=== PATIENT | female | born 1995 | race Two or more races ===

== ENCOUNTER 2017-05-14 09:30 | Emergency (ER) | payer OTHER ==
[2017-05-14 09:36] VITALS: BP 129/80; PULSE 94; RESP 17; TEMP 98.6; O2SAT 98
--- NOTE | 2017-05-14 09:58 | EDPHY ---
General Narrative: CHIEF COMPLAINT: Rash HISTORY OF PRESENT ILLNESS: Patient complains of several days duration of rash to bilateral axilla. Gradual onset. Constant duration. This been present for nearly a week but she felt as though would get better. She has no fever or chills. No neck pain or stiffness. No headache. She does have cold like symptoms at this time. No known history of diabetes. No systemic rash. No abdominal pain. No urinary complaints. No new soaps, lotions or products. She does shave her armpits. She has attempted lotion with no improvement. No other associated complaints or modifying factors. REVIEW OF SYSTEMS: Ten systems reviewed and are negative unless otherwise noted in the HPI PCP: Dr. Ceballos SPECIALISTS: None PAST MEDICAL HISTORY: None PAST SURGICAL HISTORY: None SOCIAL HISTORY: Nonsmoker. Works full-time. FAMILY HISTORY: Noncontributory EXAMINATION General Appearance: Alert, no distress Head: normocephalic, atraumatic Eyes: Pupils equal and round, no conjunctival pallor or injection ENT, Mouth: Mucous membranes moist. Airway patent Neck: Normal inspection, supple, non-tender. Painless range of motion all planes. No meningeal signs. Respiratory: Lungs are clear to auscultation. No wheezing, rhonchi or crackles Cardiovascular: Regular rate and rhythm. No murmur Gastrointestinal: Abdomen is soft and nontender. No CVA tenderness. Back: non-tender, no bony abnormalities Neurological: A&O, nonfocal, normal gait Skin: Warm and dry. Grossly intact. Blanchable plaque type rash and bilateral axilla with some mild warmth to it. Minimal induration. Some acanthosis. No fluctuance. No petechiae. No purpura. Extremities: Nontender, no pedal edema Psychiatric: Mood and affect normal DIFFERENTIAL DIAGNOSES: Including but not limited to contact dermatitis, eczema, cellulitis, irritant dermatitis MDM: 9:50 a.m. Bilateral rash to the axilla that appears to be contact dermatitis with some early cellulitic changes. No abscess. No systemic rash. Vital signs within normal limits. No meningeal signs. No petechiae or purpura. Will treat topically with steroid an oral Keflex. I have ordered a fingerstick glucose test. 10:05 a.m. Fingerstick blood sugar was 84 mg/dL. Continue with treatment for the possibility of contact dermatitis. I requested that she not shave, apply any deodorant, apply any lotions or creams other than the topical triamcinolone. She is to contact her established primary care physician Dr. Ceballos on Tuesday morning for follow-up. We discussed ED precautions. She is in no acute distress. She is comfortable this plan and discharged in stable condition. - History Smoking Status: Never smoked - Objective Vital Signs: Initial Vital Signs Temperature (C) 98.6 F 05/14/17 09:33 Heart Rate 94 05/14/17 09:33 Respiratory Rate 17 05/14/17 09:33 Blood Pressure 129/80 H 05/14/17 09:33 O2 Sat (%) 98 05/14/17 09:33 O2 Delivery Mode Room Air Allergies/Adverse Reactions: No Known Allergies Allergy (Unverified 04/21/15 16:33) Home Medications: Medication Instructions Recorded Cephalexin [Keflex (*)] 500 mg PO QID #40 cap 05/14/17 Triamcinolone 0.1% [Triamcinolone 1 sury TP TID #1 tube 05/14/17 0.1% Cream] Laboratory Results: 05/14/17 09:48 POC Glucose 84 mg/dL mg/dL (70-100) Point of Care Test Results: 05/14/17 09:48 POC Glucose 84 Departure - Departure Disposition: Home, Routine, Self-Care Clinical Impression: Contact dermatitis and eczema, Cellulitis of left axilla, Cellulitis of axilla , right Condition: Good Instructions: Contact Dermatitis (ED), Cellulitis (ED) Additional Instructions: 1. Topical triamcinolone medication as prescribed to completion 2. Oral medication as prescribed to completion 3. Contact Dr. Ceballos on Tuesday for follow-up early next week 4. ED precautions as discussed 5. Avoid any topical creams, lotions, soaps or shaving of the axilla Referrals: Rosa Ceballos MD [Primary Care Provider] - As per Instructions Prescriptions: Cephalexin [Keflex (*)] 500 mg PO QID #40 cap Triamcinolone 0.1% [Triamcinolone 0.1% Cream] 1 sury TP TID #1 tube
== END 2017-05-14 10:21 | disposition home or self-care (01) ==
DX: L25.9 Unspecified contact dermatitis, unspecified cause (principal); L03.112 Cellulitis of left axilla; L03.111 Cellulitis of right axilla

== ENCOUNTER 2017-12-16 00:40 | Emergency (ER) | payer OTHER ==
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
[2017-12-16] MEDS ORDERED: PROPARACAINE/FLUORESCEIN SOD 5 ML OPHT.BTL OP ONE (00:53)
[2017-12-16] MEDS ORDERED: IBUPROFEN 800 MG TAB PO ONE (01:00)
[2017-12-16] MEDS ORDERED: CEPHALEXIN 500MG PREPACK#4 BTL TAKEHOME ONE (01:00)
[2017-12-16] MEDS ORDERED: CEPHALEXIN 500 MG CAP PO ONE (01:00)
[2017-12-16 01:45] VITALS: BP 110/76
[2017-12-16] MEDS ORDERED: OFLOXACIN 0.3% 5ML OPHT DROPS LEFTEYE SCH (02:00)
== END 2017-12-16 01:43 | disposition home or self-care (01) ==
DX: H10.9 Unspecified conjunctivitis (principal)

== ENCOUNTER 2018-03-28 20:24 | Emergency (ER) | payer OTHER ==
--- NOTE | 2018-03-28 20:38 | EDPHY ---
H & P Stated Complaint: CP X2 WKS, HAS BEEN SEEN X2, CP WORSE Time Seen by Provider: 03/28/18 20:37 HPI/ROS: CHIEF COMPLAINT: Chest pain HISTORY OF PRESENT ILLNESS: The patient presents to the ED for evaluation of a 2 week history of chest pain. Patient reports left-sided chest discomfort. It is slightly worsened with palpation and inspiration. The patient denies any asymmetric calf pain or swelling. She denies prior history of PE or DV T. Patient did have a mild cough and upper respiratory infection earlier in the week. The patient is not attempted to take any [id number] medications such as Tylenol or ibuprofen for management of her symptoms. The patient reports her symptoms as being moderate in nature. REVIEW OF SYSTEMS: A comprehensive 10 point review of systems is otherwise negative aside from elements mentioned in the history of present illness. Source: Patient - Personal History LMP (Females 10-55): Extended Cycle BCP/Inj Current Tetanus/Diphtheria Vaccine: Yes - Medical/Surgical History Hx Asthma: No Hx Chronic Respiratory Disease: No Hx Diabetes: No Hx Cardiac Disease: No Hx Renal Disease: No Hx Cirrhosis: No Hx Alcoholism: No Hx HIV/AIDS: No Hx Splenectomy or Spleen Trauma: No Other PMH: 03/2018: denies - Family History Significant Family History: No pertinent family hx - Social History Smoking Status: Never smoked - Physical Exam Exam: General Appearance: Alert, no distress Eyes: Pupils equal and round no pallor or injection ENT, Mouth: Mucous membranes moist Respiratory: Tenderness to palpation left costochondral area, lungs clear to auscultation Cardiovascular: Regular rate and rhythm Gastrointestinal: Abdomen is soft and nontender, no masses, bowel sounds normal Neurological: 5/5 strength all 4 extremities Skin: Warm and dry, no rashes Musculoskeletal: Neck is supple nontender Extremities: symmetrical, full range of motion, no clinical evidence of DVT. Psychiatric: Patient is oriented X 3, there is no agitation Constitutional: Initial Vital Signs Temperature (C) 37.2 C 03/28/18 20:33 Heart Rate 85 03/28/18 20:33 Respiratory Rate 18 03/28/18 20:33 Blood Pressure 131/72 H 03/28/18 20:33 O2 Sat (%) 100 03/28/18 20:33 O2 Delivery Mode Room Air Allergies/Adverse Reactions: No Known Allergies Allergy (Unverified 03/28/18 20:33) Home Medications: Medication Instructions Recorded NK [No Known Home Meds] 03/28/18 Medical Decision Making - Diagnostics EKG Interpretation: EKG: Complete interpretation has been separately recorded in the [facility] archive. Summary impression: Sinus rhythm, rate 89, no ST segment elevation or depression noted Imaging Results: Chest x-ray PA lateral: Images reviewed by myself, negative for pneumothorax, cardiomegaly or infiltrate. ED Course/Re-evaluation: The patient presents the ED with several weeks of left-sided chest pain. There is a reproducible component which is suggestive of costochondritis. The patient also has a small inspiratory component. The patient's D-dimer is negative which I feel adequately excludes pulmonary embolism. Chest x-ray demonstrates no evidence of a pneumothorax or other acute abnormality. Her EKG demonstrates no evidence of ischemia. The patient will be advised to take ibuprofen for presumed costochondritis. Differential Diagnosis: Differential diagnosis considered includes costochondritis, pulmonary embolism, pneumothorax, pericarditis, myocarditis - Data Points Laboratory Results: Laboratory Results 03/28/18 21:13 03/28/18 21:13 03/28/18 03/28/18 03/28/18 21:13 21:13 21:13 WBC RBC Hgb Hct MCV MCH MCHC RDW Plt Count MPV Neut % (Auto) Lymph % (Auto) Irion % (Auto) Eos % (Auto) Baso % (Auto) Nucleat RBC Rel Count Absolute Neuts (auto) Absolute Lymphs (auto) Absolute Monos (auto) Absolute Eos (auto) Absolute Basos (auto) Absolute Nucleated RBC Immature Gran % Immature Gran # D-Dimer < 0.27 ug/mLFEU ug/mLFEU (0.00-0.50) Sodium 140 mEq/L mEq/L (135-145) Potassium 3.8 mEq/L mEq/L (3.3-5.0) Chloride 104 mEq/L mEq/L (97-110) Carbon Dioxide 23 mEq/l mEq/l (22-31) Anion Gap 13 mEq/L mEq/L (8-16) BUN 6 mg/dL L mg/dL (7-23) Creatinine 0.6 mg/dL mg/dL (0.6-1.0) Estimated GFR > 60 Glucose 101 mg/dL H mg/dL (70-100) Calcium 9.6 mg/dL mg/dL (8.5-10.4) Troponin I < 0.012 ng/mL ng/mL (0.000-0.034) Beta HCG, Qual NEGATIVE 03/28/18 21:13 WBC 7.86 10^3/uL 10^3/uL (3.80-9.50) RBC 4.36 10^6/uL 10^6/uL (4.18-5.33) Hgb 12.5 g/dL L g/dL (12.6-16.3) Hct 35.7 % L % (38.0-47.0) MCV 81.9 fL fL (81.5-99.8) MCH 28.7 pg pg (27.9-34.1) MCHC 35.0 g/dL g/dL (32.4-36.7) RDW 12.4 % % (11.5-15.2) Plt Count 223 10^3/uL 10^3/uL (150-400) MPV 9.7 fL fL (8.7-11.7) Neut % (Auto) 70.6 % % (39.3-74.2) Lymph % (Auto) 25.3 % % (15.0-45.0) Irion % (Auto) 3.4 % L % (4.5-13.0) Eos % (Auto) 0.3 % L % (0.6-7.6) Baso % (Auto) 0.1 % L % (0.3-1.7) Nucleat RBC Rel Count 0.0 % % (0.0-0.2) Absolute Neuts (auto) 5.55 10^3/uL 10^3/uL (1.70-6.50) Absolute Lymphs (auto) 1.99 10^3/uL 10^3/uL (1.00-3.00) Absolute Monos (auto) 0.27 10^3/uL L 10^3/uL (0.30-0.80) Absolute Eos (auto) 0.02 10^3/uL L 10^3/uL (0.03-0.40) Absolute Basos (auto) 0.01 10^3/uL L 10^3/uL (0.02-0.10) Absolute Nucleated RBC 0.00 10^3/uL 10^3/uL (0-0.01) Immature Gran % 0.3 % % (0.0-1.1) Immature Gran # 0.02 10^3/uL 10^3/uL (0.00-0.10) D-Dimer Sodium Potassium Chloride Carbon Dioxide Anion Gap BUN Creatinine Estimated GFR Glucose Calcium Troponin I Beta HCG, Qual Departure - Departure Disposition: Home, Routine, Self-Care Clinical Impression: Costochondritis Condition: Good Instructions: Costochondritis (ED) Additional Instructions: 1. The testing done in the emergency department today demonstrates no significant cardiac or pulmonary condition. 2. I believe your having inflammatory condition of your rib cartilage. I do recommend beginning Motrin 600 mg 3 times a day. Referrals: Rosa Ceballos MD [Primary Care Provider] - As per Instructions
--- NOTE | 2018-03-28 20:58 | CPEKG ---
Test Reason : OPEN Blood Pressure : / mmHG Vent. Rate : 089 BPM Atrial Rate : 089 BPM P-R Int : 140 ms QRS Dur : 097 ms QT Int : 369 ms P-R-T Axes : 020 083 042 degrees QTc Int : 449 ms Sinus rhythm Confirmed by John Dupree ([id number]) on 03/28/2018 8:57:39 PM Referred By: Confirmed By:John Dupree
[2018-03-28 21:21] LABS: PLATELET COUNT 223 10^3/uL (150-400)
[2018-03-28 22:08] VITALS: BP 136/91
== END 2018-03-28 22:11 | disposition home or self-care (01) ==
DX: R07.9 Chest pain, unspecified (principal); J98.09 Other diseases of bronchus, not elsewhere classified

== ENCOUNTER 2018-05-02 17:49 | Emergency (ER) | payer OTHER ==
--- NOTE | 2018-05-02 18:28 | EDPHY ---
H & P Stated Complaint: abd pain x months. Time Seen by Provider: 05/02/18 18:05 HPI/ROS: Clinical Impression: Cholelithiasis, abdominal pain Assessment/Plan: A 22-year-old female presents to the emergency department with months of abdominal pain, worse in the last 2 weeks. Patient is afebrile, stable vital signs on arrival, in no acute distress, nontoxic, nonseptic, and declining antiemetic and analgesic therapy. Abdomen with right upper quadrant and epigastric tenderness although no focal peritoneal findings, distention or rigidity. Labs were reassuring with no transaminitis, leukocytosis, electrolyte imbalance, metabolic disturbance, pancreatitis, or acute renal insufficiency. Ultrasound confirms significant cholelithiasis with no evidence of acute cholecystitis or choledocholithiasis. Patient also has fatty liver. I discussed lab and ultrasound findings with her. Encouraged outpatient surgical follow-up and referrals were given. Patient declined pain medication. Dietary adjustments recommended. Warning signs return to ED sooner alignment person and discharge papers. Case discussed with Dr. Mahmood. Differential Dx: Differential diagnosis includes but not limited to acute cholecystitis, cholelithiasis, pancreatitis, gastritis, SBO, nephrolithiasis ED Course: 1921: Patient reassessed. Laying comfortably in bed, NAD. Declining pain meds. No vomiting. Lab results reviewed, no significant findings. patient requesting US of gallbladder which was ordered. Low suspicion for acute surgical process. 2047: Dr. Dove with radiology read US. Many gallstones. No US e/o acute cholecystitis but + Nevarez sign on exam. Also with fatty liver. Chief Complaint: Abdominal pain HPI: 22-year-old female presents to the emergency department with complaints of abdominal pain times months. Patient reports worsening abdominal pain in the last week. She has apparently been seen by [facility] seen at 10 times for abdominal pain. She reports having a normal EKG. She had a CT scan on the 25 of April that was read as normal with no acute findings, I personally reviewed this radiology report on her phone. She was reportedly also had normal labs. She was told she had"an infection in her urine"but that she was told to drink plenty of water and was not given antibiotics. She is on Nexplanon control and reports she has not had a menstrual cycle for many months. She denies risk of . No abnormal complaints but she has not had a formal pelvic exam. She reports having a documented fever of 102 yesterday. Eating makes her symptoms worse. This is associated with nausea and diarrhea. No report of bloody stools. No vomiting. She has not taken anything for her symptoms. She is declining nausea and pain medications in the ED. PMH: Chronic abdominal pain Pertinent Past Surgical History: None reported Family History: None reported Social History: Nonsmoker, denies alcohol ROS: All other systems negative Constitutional: No fever, no chills, +appetite change. Cardiovascular: No chest pain, no palpitations. Respiratory: No cough, no shortness of breath. Gastrointestinal: +abdominal pain, no vomiting, +diarrhea. Genitourinary: No hematuria, dysuria, flank pain, pelvic pain, no abnormal vaginal discharge Musculoskeletal: No back pain, joint swelling, joint pain, myalgias. Skin: No rashes, color change. Neurological: No headache, dizziness, weakness. Physical Exam: General Appearance: Alert, oriented, appropriate, cooperative, NAD, well hydrated, non-toxic appearing, VSS, no hypoxia, lying comfortably in the bed, declining analgesics. Respiratory: There are no retractions, lungs are clear to auscultation. Cardiac: Regular rate and rhythm, no murmurs or gallops. Gastrointestinal: Abdomen is soft, generalized tenderness, right upper quadrant and epigastric tenderness, negative Nevarez sign, bowel sounds normal, no masses/ hernia, no rigidity, guarding or focal peritoneal findings. Neurological: Alert and oriented x 3, CN 2-12 grossly intact, DTR's intact, normal sensation and strength Skin: Warm, dry, no rashes, no nodules on palpation. Psychiatric: Patient is oriented X 3, there is no agitation. MDM: Patient was seen independently by established practice protocols. Secondary supervising physician at time of evaluation was Dr. Mahmood . Diagnosis: Acute on chronic abdominal pain. New, requires workup Summary: See Assessment and Plan for summary of ED visit Clinical lab tests: ordered / reviewed. Independent visualization of images, tracing, or specimens: Personally reviewed the patient's records of recent CT scan abdomen pelvis with contrast read by Radiology with no acute findings. Review / Summarize previous medical records: Yes, see above HPI for CT results Discussed patient with another provider: Dr. Mahmood Risk of comlications, morbidity, mortality: Presenting problem moderate Diagnostic procedures moderate Management Options moderate Patient Progress: Stable. - Medical/Surgical History Hx Asthma: No Hx Chronic Respiratory Disease: No Hx Diabetes: No Hx Cardiac Disease: No Hx Renal Disease: No Hx Cirrhosis: No Hx Alcoholism: No Hx HIV/AIDS: No Hx Splenectomy or Spleen Trauma: No Other PMH: 03/2018: denies - Social History Smoking Status: Never smoked Constitutional: Initial Vital Signs Temperature (C) 37.0 C 05/02/18 18:03 Heart Rate 93 05/02/18 18:03 Respiratory Rate 18 05/02/18 18:03 Blood Pressure 136/79 H 05/02/18 18:03 O2 Sat (%) 99 05/02/18 18:03 O2 Delivery Mode Room Air Allergies/Adverse Reactions: No Known Allergies Allergy (Unverified 05/02/18 18:03) Home Medications: Medication Instructions Recorded NK [No Known Home Meds] 03/28/18 Medical Decision Making - Diagnostics Imaging Results: Imaging Impressions Abdomen Ultrasound 05/02/18 19:19 Impression: 1. Cholelithiasis with no definite secondary findings to confirm acute cholecystitis. 2. Suspect hepatic steatosis. 3. See above report for additional findings. Results called and discussed with Kwesi WILKINS on 05/02/2018 at 20:38. - Data Points Laboratory Results: Laboratory Results 05/02/18 18:10 05/02/18 18:10 05/02/18 05/02/18 18:10 18:10 WBC 6.34 10^3/uL 10^3/uL (3.80-9.50) RBC 4.58 10^6/uL 10^6/uL (4.18-5.33) Hgb 13.2 g/dL g/dL (12.6-16.3) Hct 38.1 % % (38.0-47.0) MCV 83.2 fL fL (81.5-99.8) MCH 28.8 pg pg (27.9-34.1) MCHC 34.6 g/dL g/dL (32.4-36.7) RDW 12.8 % % (11.5-15.2) Plt Count 269 10^3/uL 10^3/uL (150-400) MPV 10.2 fL fL (8.7-11.7) Neut % (Auto) 61.9 % % (39.3-74.2) Lymph % (Auto) 29.0 % % (15.0-45.0) [place] % (Auto) 7.4 % % (4.5-13.0) Eos % (Auto) 0.9 % % (0.6-7.6) Baso % (Auto) 0.5 % % (0.3-1.7) Nucleat RBC Rel Count 0.0 % % (0.0-0.2) Absolute Neuts (auto) 3.92 10^3/uL 10^3/uL (1.70-6.50) Absolute Lymphs (auto) 1.84 10^3/uL 10^3/uL (1.00-3.00) Absolute Monos (auto) 0.47 10^3/uL 10^3/uL (0.30-0.80) Absolute Eos (auto) 0.06 10^3/uL 10^3/uL (0.03-0.40) Absolute Basos (auto) 0.03 10^3/uL 10^3/uL (0.02-0.10) Absolute Nucleated RBC 0.00 10^3/uL 10^3/uL (0-0.01) Immature Gran % 0.3 % % (0.0-1.1) Immature Gran # 0.02 10^3/uL 10^3/uL (0.00-0.10) Sodium 140 mEq/L mEq/L (135-145) Potassium 3.9 mEq/L mEq/L (3.3-5.0) Chloride 103 mEq/L mEq/L (97-110) Carbon Dioxide 26 mEq/l mEq/l (22-31) Anion Gap 11 mEq/L mEq/L (6-14) BUN 8 mg/dL mg/dL (7-23) Creatinine 0.6 mg/dL mg/dL (0.6-1.0) Estimated GFR > 60 Glucose 92 mg/dL mg/dL (70-100) Calcium 9.8 mg/dL mg/dL (8.5-10.4) Total Bilirubin 0.9 mg/dL mg/dL (0.1-1.4) Conjugated Bilirubin 0.2 mg/dL mg/dL (0.0-0.5) Unconjugated Bilirubin 0.7 mg/dL mg/dL (0.0-1.1) AST 18 IU/L IU/L (14-46) ALT 26 IU/L IU/L (9-52) Alkaline Phosphatase 68 IU/L IU/L (38-126) Total Protein 8.2 g/dL g/dL (6.3-8.2) Albumin 5.0 g/dL g/dL (3.5-5.0) Lipase 183 IU/L IU/L (23-300) Point of Care Test Results: Urine Collection Date 05/02/18 Collection Time 18:47 HCG Results Negative Urine Dip Collection Date 05/02/18 Collection Time 18:46 Specific [place] (1.002-1.030) 1.005 PH (5.0-7.5) 7.5 Leukocytes (Negative) Negative Nitrites (Negative) Negative Protein (Negative) Negative Glucose (Negative) Negative Ketones (Negative) Negative Urobilnogen (0.2-1.0 EU) 0.2 Bilirubin (Negative) Negative Blood (Negative) Negative Departure - Departure Disposition: Home, Routine, Self-Care Clinical Impression: Cholelithiasis Qualifiers: Cholelithiasis location: gallbladder Cholecystitis presence: without cholecystitis Biliary obstruction: without biliary obstruction Qualified Code(s) : K80.20 - Calculus of gallbladder without cholecystitis without obstruction Condition: Good Instructions: Gallstones (ED) Additional Instructions: Your ultrasound tonight shows that you have many gallstones and your gallbladder. You do not have any clinical signs to suggest an acutely infected gallbladder. Your gallbladder does not need to be removed emergently tonight. However, we recommend that you see a general surgeon given that you're having increased pain. A referral was given. Please use Tylenol or ibuprofen for pain control. Please avoid fatty foods, fried foods and cakes and cookies. Please stick to a healthy diet. Return to the emergency department sooner for severe pain, fever greater than 100.4, vomiting, abdominal distention, or any other concerns. Referrals: Rosa Ceballos MD [Primary Care Provider] - As per Instructions Horacio Bear MD [Medical Doctor] - 1 day without fail
[2018-05-02 18:30] LABS: PLATELET COUNT 269 10^3/uL (150-400)
[2018-05-02 21:13] VITALS: BP 138/89
== END 2018-05-02 21:14 | disposition home or self-care (01) ==
DX: K80.20 Calculus of gallbladder without cholecystitis without obstruction (principal)

== ENCOUNTER 2018-05-29 11:35 | Emergency (ER) | payer OTHER ==
--- NOTE | 2018-05-29 11:50 | EDPHY ---
H & P Stated Complaint: chest pain Time Seen by Provider: 05/29/18 11:49 HPI/ROS: CHIEF COMPLAINT: Chest pain, palpitations HISTORY OF PRESENT ILLNESS: The patient presents to the ED with complaints of chest pain palpitations that began at work. The patient denies any inciting event. She denies feeling particularly stressed out or anxious. The patient was seen in the emergency department 2 months ago with chest pain and had a negative workup at that point time. The patient does endorse some symptoms of left calf discomfort. She also complains of a mild component of pleuritic chest pain. The patient denies fever, cough or congestion. The patient takes no regular medications. Her symptoms are mild to moderate in nature. REVIEW OF SYSTEMS: A comprehensive 10 point review of systems is otherwise negative aside from elements mentioned in the history of present illness. Source: Patient Exam Limitations: No limitations - Personal History LMP (Females 10-55): Irregular Current Tetanus/Diphtheria Vaccine: Yes Current Tetanus Diphtheria and Acellular Pertussis (TDAP): Yes - Medical/Surgical History Hx Asthma: No Hx Chronic Respiratory Disease: No Hx Diabetes: No Hx Cardiac Disease: No Hx Renal Disease: No Hx Cirrhosis: No Hx Alcoholism: No Hx HIV/AIDS: No Hx Splenectomy or Spleen Trauma: No Other PMH: 03/2018: denies - Social History Smoking Status: Never smoked - Physical Exam Exam: General Appearance: Tearful, anxious Eyes: Pupils equal and round no pallor or injection ENT, Mouth: Mucous membranes moist Respiratory: There are no retractions, lungs are clear to auscultation Cardiovascular: Regular rate and rhythm Gastrointestinal: Abdomen is soft and nontender, no masses, bowel sounds normal Neurological: A&O, normal motor function, normal sensory exam, normal cranial nerves Skin: Warm and dry, no rashes Musculoskeletal: Neck is supple nontender Extremities: symmetrical, full range of motion Psychiatric: Patient is oriented X 3, there is no agitation Constitutional: Initial Vital Signs Temperature (C) 37.1 C 05/29/18 11:41 Heart Rate 102 H 05/29/18 11:41 Respiratory Rate 18 05/29/18 11:41 Blood Pressure 137/79 H 05/29/18 11:41 O2 Sat (%) 99 05/29/18 11:41 O2 Delivery Mode Room Air Allergies/Adverse Reactions: No Known Allergies Allergy (Unverified 05/02/18 18:03) Home Medications: Medication Instructions Recorded NK [No Known Home Meds] 03/28/18 Medical Decision Making - Diagnostics EKG Interpretation: EKG: Complete interpretation has been separately recorded in the [email or web address] archive. Summary impression: Sinus rhythm, rate 97, LVH ED Course/Re-evaluation: The patient presents to the ED with complaints of chest pain and palpitations began earlier today. The patient seemed quite anxious upon arrival that she denies any clear precipitating event which would admit her anxious today. The patient has been evaluated for chest pain in the emergency department in the past. She has no risk factors for acute coronary syndrome. Patient had a negative D-dimer which I feel adequately excludes pulmonary embolism in this low risk by Wells criteria patient. The patient was given 1 mg of IV Ativan here. The patient had unremarkable chest x-ray 2 months ago. She has no symptoms suggestive of pulmonary embolism or pneumothorax. Additionally the patient has no evidence of anemia or a significant metabolic derangement. I re-evaluated the patient at 1:00 p.m.. At this point time I do feel that she can continue to work with her primary care provider for follow-up. I doubt acute coronary syndrome at think that her symptoms are most likely mediated by anxiety. Differential Diagnosis: Differential diagnosis considered includes anxiety, arrhythmia, dehydration, palpitations, arrhythmia, pulmonary embolism - Data Points Laboratory Results: Laboratory Results 05/29/18 11:39 05/29/18 11:39 05/29/18 05/29/18 05/29/18 11:42 11:39 11:39 WBC RBC Hgb Hct MCV MCH MCHC RDW Plt Count MPV Neut % (Auto) Lymph % (Auto) [place] % (Auto) Eos % (Auto) Baso % (Auto) Nucleat RBC Rel Count Absolute Neuts (auto) Absolute Lymphs (auto) Absolute Monos (auto) Absolute Eos (auto) Absolute Basos (auto) Absolute Nucleated RBC Immature Gran % Immature Gran # D-Dimer < 0.27 ug/mLFEU ug/mLFEU (0.00-0.50) Sodium 141 mEq/L mEq/L (135-145) Potassium 4.0 mEq/L mEq/L (3.3-5.0) Chloride 103 mEq/L mEq/L (97-110) Carbon Dioxide 20 mEq/l L mEq/l (22-31) Anion Gap 18 mEq/L H mEq/L (6-14) BUN 11 mg/dL mg/dL (7-23) Creatinine 0.6 mg/dL mg/dL (0.6-1.0) Estimated GFR > 60 Glucose 100 mg/dL mg/dL (70-100) Calcium 10.0 mg/dL mg/dL (8.5-10.4) POC Troponin I 0.00 ng/mL ng/mL (0.00-0.08) 05/29/18 11:39 WBC 6.77 10^3/uL 10^3/uL (3.80-9.50) RBC 4.98 10^6/uL 10^6/uL (4.18-5.33) Hgb 14.6 g/dL g/dL (12.6-16.3) Hct 42.1 % % (38.0-47.0) MCV 84.5 fL fL (81.5-99.8) MCH 29.3 pg pg (27.9-34.1) MCHC 34.7 g/dL g/dL (32.4-36.7) RDW 12.7 % % (11.5-15.2) Plt Count 319 10^3/uL 10^3/uL (150-400) MPV 10.2 fL fL (8.7-11.7) Neut % (Auto) 52.1 % % (39.3-74.2) Lymph % (Auto) 39.4 % % (15.0-45.0) [place] % (Auto) 5.9 % % (4.5-13.0) Eos % (Auto) 1.6 % % (0.6-7.6) Baso % (Auto) 0.9 % % (0.3-1.7) Nucleat RBC Rel Count 0.0 % % (0.0-0.2) Absolute Neuts (auto) 3.52 10^3/uL 10^3/uL (1.70-6.50) Absolute Lymphs (auto) 2.67 10^3/uL 10^3/uL (1.00-3.00) Absolute Monos (auto) 0.40 10^3/uL 10^3/uL (0.30-0.80) Absolute Eos (auto) 0.11 10^3/uL 10^3/uL (0.03-0.40) Absolute Basos (auto) 0.06 10^3/uL 10^3/uL (0.02-0.10) Absolute Nucleated RBC 0.00 10^3/uL 10^3/uL (0-0.01) Immature Gran % 0.1 % % (0.0-1.1) Immature Gran # 0.01 10^3/uL 10^3/uL (0.00-0.10) D-Dimer Sodium Potassium Chloride Carbon Dioxide Anion Gap BUN Creatinine Estimated GFR Glucose Calcium POC Troponin I Medications Given: Discontinued Medications Lorazepam (Ativan Injection) 1 mg IVP EDNOW ONE Stop: 05/29/18 12:03 Last Admin: 05/29/18 12:39 Dose: 1 mg Point of Care Test Results: Chemistry 05/29/18 11:42 POC Troponin I 0.00 ng/mL ng/mL (0.00-0.08) Departure - Departure Disposition: Home, Routine, Self-Care Clinical Impression: Chest pain, Heart palpitations Condition: Good Instructions: Heart Palpitations (ED) Additional Instructions: 1. Please schedule a follow-up appointment with your primary care provider. 2. Please return to the ED for markedly worsening symptoms or other concerns. 3. The testing done in the emergency department today demonstrates no significant abnormality. Referrals: [facility],. [Clinic] - As per Instructions
[2018-05-29] MEDS ORDERED: LORazepam 2 MG/ML INJ IVP ONE (12:02)
[2018-05-29 12:07] LABS: PLATELET COUNT 319 10^3/uL (150-400)
--- NOTE | 2018-05-29 12:26 | CPEKG ---
Test Reason : OPEN Blood Pressure : / mmHG Vent. Rate : 097 BPM Atrial Rate : 096 BPM P-R Int : 137 ms QRS Dur : 098 ms QT Int : 352 ms P-R-T Axes : 010 088 018 degrees QTc Int : 447 ms Sinus rhythm Confirmed by John Dupree ([id number]) on 05/29/2018 12:25:52 PM Referred By: Confirmed By:John Dupree
[2018-05-29 13:20] VITALS: BP 122/74
== END 2018-05-29 13:14 | disposition home or self-care (01) ==
LOC: EDUNIT#
DX: R07.9 Chest pain, unspecified (principal); R00.2 Palpitations
CPT/HCPCS: 84484-PO; 96374; J2060

== ENCOUNTER 2018-11-21 20:37 | Emergency (ER) | payer OTHER ==
--- NOTE | 2018-11-21 20:50 | EDPHY ---
General Time Seen by Provider: 11/21/18 20:47 Narrative: CLINICAL IMPRESSION: First-trimester vaginal bleeding, subchorionic hemorrhage ASSESSMENT/PLAN: Patient is a 23-year-old female who presents with first trimester vaginal bleeding and lower abdominal cramping. Patient is afebrile and nontoxic- appearing, no acute distress. Patient's abdomen is soft, nondistended, she has diffuse tenderness to palpation in the lower abdomen without peritoneal signs. Pelvic US reveals single live intrauterine with average age of 7 weeks and heart rate of 144. Ultrasound revealed a tiny subchorionic hemorrhage, no findings to suggest ovarian torsion, ectopic , TOA or acute surgical abdomen. H&H is within normal limits without evidence of significant acute blood loss anemia, she is O+ and does not require RhoGAM. Hcg quant 129,000. H&P with ED evaluation consistent with subchorionic hemorrhage, discussed pelvic rest and OBGYN follow-up. She will call 1st thing tomorrow morning, return precautions discussed. DIFFERENTIAL DX: Differential diagnosis including but not limited to threatened miscarriage, complete , subchorionic hemorrhage, torsion, ectopic ED COURSE: 2149: H&H mildly low at 12 and 35, no evidence of significant acute blood loss anemia. 2219: Case discussed with Dr. Busby, ultrasound reveals tiny subchorionic hemorrhage. 223: On repeat examination the patient reports very minimal residual bleeding. Her abdominal pain has significantly improved. Her abdomen is soft, very mild generalized lower abdominal tenderness to palpation, no peritoneal signs or evidence of a surgical abdomen. CHIEF COMPLAINT: First-trimester vaginal bleeding, lower abdominal pain HPI: Patient is a female who is approximately 9 weeks presents with sudden onset vaginal bleeding and lower abdominal pain that occurred just prior to arrival. Patient is followed by Kasandra at [facility], she had an formal OBGYN evaluation last week. This included an ultrasound that was reportedly normal. Patient has been doing fine up until just prior to arrival, she went to the bathroom and noticed blood in the toilet. She subsequently started to develop some lower abdominal cramping. Patient had an uncomplicated 1st with vaginal delivery. Patient denies any abdominal trauma, fever , nausea, vomiting, chest pain or shortness of breath. She has had no urinary symptoms to include dysuria, hematuria or frequency. Bowel movements have been regular. PMH: Denies Pertinent Past Surgical History: Cholecystectomy Family History: Not contributory Social History: Denies cigarette smoking, alcohol use or illicit drug use. REVIEW OF SYSTEMS: All other systems negative Constitutional: No fever, no chills, appetite change. Eyes: No discharge, vision change ENT: No sore throat, congestion, ear pain. Cardiovascular: No chest pain, no palpitations. Respiratory: No cough, no shortness of breath. Gastrointestinal: Lower abdominal pain. No vomiting, diarrhea. Genitourinary: Vaginal bleeding. No hematuria, dysuria, flank pain. Musculoskeletal: No back pain, joint swelling, joint pain, myalgias. Skin: No rashes, color change. Neurological: No headache, dizziness, weakness. PHYSICAL EXAM: General Appearance: Mildly uncomfortable appearing however not toxic- appearing.. HENT: Normocephalic, atraumatic. Bilateral external ears are normal. Nares are clear, mucosa is pink. Oropharynx is clear, uvula is midline. There is no tonsillar enlargement or exudate. The dentition is normal. Eyes: PERRLA, EOMI. Conjunctiva pink, no pallor or injection. Neck: Supple, nontender, no lymphadenopathy, no midline pain, FROM. Respiratory: There are no retractions, lungs are clear to auscultation. Cardiac: Regular rate and rhythm, no murmurs or gallops. Gastrointestinal: Patient's abdomen is soft and nondistended. She has generalized lower abdominal tenderness without voluntary guarding or rebound tenderness. No masses or hernias appreciated, no rigidity. Neurological: Alert and oriented x 3, CN 2-12 grossly intact, normal sensation and strength Skin: Warm, dry, no rashes, no nodules on palpation. Musculoskeletal: Extremities are symmetrical, full range of motion, no tenderness, deformity, swelling, or erythema. Psychiatric: Mood and affect are normal, there is no agitation. MEDICAL DECISION MAKING: Patient was seen independently. Secondary supervising physician at time of evaluation was Dr. Busby, he did not evaluate this patient. Diagnosis: First-trimester bleeding, lower abdominal pain, subchorionic hemorrhage. Summary: See Assessment and Plan for summary of ED visit Clinical lab tests: ordered / reviewed. Independent visualization of images, tracing, or specimens: Yes. Decision to obtain medical records or history from someone other than the patient: No Review / Summarize previous medical records: Yes Discussed patient with another provider: Yes, Dr. Busby Patient Progress: Stable, discharge. - Diagnostics Imaging Results: Imaging Impressions Obstetrics Ultrasound 11/21/18 20:48 Impression: Live intrauterine gestation with estimated gestational age of 7 weeks 0 days. Estimated delivery date by this ultrasound is July 10, 2019, which is 2 weeks later than the estimated delivery date based on the first ultrasound of 06/25/2019. Continued close follow-up of this gestation is recommended. Tiny subchorionic hemorrhage. Findings and recommendations discussed with Brent Busby MD at 2209 hour, 11/21/2018. - History Smoking Status: Never smoked - Objective Vital Signs: Initial Vital Signs Temperature (C) 36.7 C 11/21/18 20:39 Heart Rate 87 11/21/18 20:39 Respiratory Rate 16 11/21/18 20:39 Blood Pressure 133/94 H 11/21/18 20:39 O2 Sat (%) 99 11/21/18 20:39 O2 Delivery Mode Room Air Allergies/Adverse Reactions: No Known Allergies Allergy (Unverified 05/02/18 18:03) Home Medications: Medication Instructions Recorded 11/21/18 Laboratory Results: Laboratory Results 11/21/18 21:07 11/21/18 21:07 11/21/18 11/21/18 21:07 21:07 WBC 7.50 10^3/uL 10^3/uL (3.80-9.50) RBC 4.17 10^6/uL L 10^6/uL (4.18-5.33) Hgb 12.4 g/dL L g/dL (12.6-16.3) Hct 35.1 % L % (38.0-47.0) MCV 84.2 fL fL (81.5-99.8) MCH 29.7 pg pg (27.9-34.1) MCHC 35.3 g/dL g/dL (32.4-36.7) RDW 12.6 % % (11.5-15.2) Plt Count 270 10^3/uL 10^3/uL (150-400) MPV 9.8 fL fL (8.7-11.7) Neut % (Auto) 64.4 % % (39.3-74.2) Lymph % (Auto) 27.6 % % (15.0-45.0) [place] % (Auto) 6.0 % % (4.5-13.0) Eos % (Auto) 1.2 % % (0.6-7.6) Baso % (Auto) 0.5 % % (0.3-1.7) Nucleat RBC Rel Count 0.0 % % (0.0-0.2) Absolute Neuts (auto) 4.83 10^3/uL 10^3/uL (1.70-6.50) Absolute Lymphs (auto) 2.07 10^3/uL 10^3/uL (1.00-3.00) Absolute Monos (auto) 0.45 10^3/uL 10^3/uL (0.30-0.80) Absolute Eos (auto) 0.09 10^3/uL 10^3/uL (0.03-0.40) Absolute Basos (auto) 0.04 10^3/uL 10^3/uL (0.02-0.10) Absolute Nucleated RBC 0.00 10^3/uL 10^3/uL (0-0.01) Immature Gran % 0.3 % % (0.0-1.1) Immature Gran # 0.02 10^3/uL 10^3/uL (0.00-0.10) Sodium 134 mEq/L L mEq/L (135-145) Potassium 3.7 mEq/L mEq/L (3.5-5.2) Chloride 102 mEq/L mEq/L (97-110) Carbon Dioxide 21 mEq/l L mEq/l (22-31) Anion Gap 11 mEq/L mEq/L (6-14) BUN 7 mg/dL mg/dL (7-23) Creatinine 0.4 mg/dL L mg/dL (0.6-1.0) Estimated GFR > 60 Glucose 101 mg/dL H mg/dL (70-100) Calcium 9.5 mg/dL mg/dL (8.5-10.4) Beta HCG, Quant 425926.00 mIU/mL H mIU/mL (0.00-4.83) Departure - Departure Disposition: Home, Routine, Self-Care Clinical Impression: First trimester bleeding Condition: Good Instructions: Subchorionic Hemorrhage (ED) Additional Instructions: DISCHARGE INSTRUCTIONS FROM YOUR PROVIDER Thank you for visiting our emergency department today. It is very important that you follow up with your OBGYN, please call tomorrow morning to schedule follow-up. You will need a repeat HCG within 48 hr as well as a possible ultrasound. It is important that you continue pelvic rest, please do not insert anything into her vagina and please to not partake in any sexual activity. In general please take it easy. Please monitor the amount of bleeding that you are having, if you are soaking more than 1 pad per hour for more than 3 hr please return to the emergency department; also return if you have any feelings of lightheadedness, dizziness, nausea, vomiting or worsening abdominal pain. At any time you develop any of the following please return to the Emergency Department immediately: 1. Any increase in pain 2. Any increase in bleeding 3. Dizziness 4. Pass out (syncope) 5. Or anything else concerning to you People present with illnesses and injuries in different ways, and it is always possible that we have missed something. Again, thank you for choosing our emergency department. We hope that you feel better. Referrals: Rosa Ceballos MD [Primary Care Provider] - 1 day without fail
[2018-11-21 21:20] LABS: PLATELET COUNT 270 10^3/uL (150-400)
[2018-11-21 22:56] VITALS: BP 120/63
== END 2018-11-21 22:45 | disposition home or self-care (01) ==
DX: O20.9 Hemorrhage in early pregnancy, unspecified (principal); Z3A.01 Less than 8 weeks gestation of pregnancy